=== PATIENT | male | born 1990 | race Hispanic/Latino ===

== ENCOUNTER 2020-08-28 17:26 | Emergency (ER) | payer BC ==
[2020-08-28 17:30] VITALS: BP 125/81
[2020-08-28] MEDS ORDERED: LIDOCAINE (1%) 10 MG/1 ML VIAL 20 ML MDV INFILTRATI ONE (17:35)
[2020-08-28] MEDS ORDERED: DIPHtheria,PERTUSSIS(ACELL),TETANUS VACCINE/PF 0.5 ML VIAL IM ONE (17:35)
--- NOTE | 2020-08-28 17:45 | Emergency Department Report ---
ED General Adult HPI - General Chief complaint: Wound/Laceration Stated complaint: LEG LACERATION Time Seen by Provider: 08/28/20 17:31 Source: patient Mode of arrival: Ambulatory Limitations: No Limitations - History of Present Illness Initial comments: 30-year-old male presents with complaints of right lower leg laceration today. Patient states he cut his leg on sharon wire during work. The laceration occurred through his pants. He states he is unsure of his last tetanus vaccination. He denies any possibility of foreign bodies, numbnes s/tingling/weakness in his leg, or difficulty moving his legs/walking. -: Sudden Quality: dull Worsens with: none Treatments Prior to Arrival: none - Related Data Previous Rx's Medication Instructions Recorded Last Taken Type Ibuprofen [Motrin 800 MG tab] 800 mg PO Q8HR PRN #20 tablet 08/28/20 Unknown Rx Mupirocin [Bactroban 2% OINT] 1 applic TP TID 7 Days #1 tube 08/28/20 Unknown Rx Sulfamethoxazole/Trimethoprim 1 each PO BID 7 Days #14 tablet 08/28/20 Unknown Rx [Bactrim DS TAB] Allergies Allergy/AdvReac Type Severity Reaction Status Date / Time Penicillins Allergy Unknown Verified 08/28/20 17:27 ED Review of Systems ROS: Stated complaint: LEG LACERATION Other details as noted in HPI Constitutional: denies: chills, fever Skin: as per HPI. denies: change in color Neurological: denies: numbness, paresthesias Hematological/Lymphatic: denies: easy bleeding ED Past Medical Hx - Past Medical History Previous Medical History?: No - Surgical History Past Surgical History?: No - Social History Smoking Status: Never Smoker Substance Use Type: None - Medications Home Medications: Home Medications Medication Instructions Recorded Confirmed Last Taken Type Ibuprofen [Motrin 800 MG tab] 800 mg PO Q8HR PRN #20 tablet 08/28/20 Unknown Rx Mupirocin [Bactroban 2% OINT] 1 applic TP TID 7 Days #1 tube 08/28/20 Unknown Rx Sulfamethoxazole/Trimethoprim 1 each PO BID 7 Days #14 tablet 08/28/20 Unknown Rx [Bactrim DS TAB] ED Physical Exam - General Limitations: No Limitations General appearance: alert, in no apparent distress - Head Head exam: Present: atraumatic, normocephalic - Eye Eye exam: Present: normal appearance. Absent: scleral icterus - Respiratory Respiratory exam: Absent: respiratory distress - Cardiovascular Cardiovascular Exam: Present: regular rate - Extremities Exam Extremities exam: Present: full ROM - Neurological Exam Neurological exam: Present: alert, oriented X3, normal gait - Psychiatric Psychiatric exam: Present: normal affect, normal mood - Skin Skin exam: Present: warm, dry, normal color. Absent: intact (3 cm laceration noted to right lateral upper leg without obvious foreign body, redness, or drainage noted; there is mild active bleeding), rash ED Course Vital Signs 08/28/20 17:27 Temperature 98 F Pulse Rate 93 H Respiratory 20 Rate Blood Pressure 125/81 O2 Sat by Pulse 96 Oximetry - Laceration /Wound Repair Right Lower Leg Wound Length (cm): 3 Wound's Depth, Shape: linear Wound Explored: no foreign body removed Irrigated w/ Saline (ccs): 80 Betadine Prep?: Yes Anesthesia: 1% Lidocaine Volume Anesthetic (ccs): 6 Wound Repaired With: sutures Suture Size/Type: 4:0, proline Number of Sutures: 7 (Continuous) Layer Closure?: No Sterile Dressing Applied?: Yes Progress: Minimal bleeding occurred. Patient tolerated procedure well without any immedia te complications. ED Medical Decision Making - Medical Decision Making 30-year-old male presents with complaints of right lower leg lac eration today. Patient states he cut his leg on sharon wire during work. The laceration occurred through his pants. He states he is unsure of his last tetanus vaccination. He denies any possibility of foreign bodies, numbness/tingling/weakness in his leg, or difficulty moving his legs/walking. Laceration repair without any immediate complications. Patient placed on mupirocin and Bactrim for infection prevention; patient has allergy to penicillins. His vitals are normal, he is well-appearing, he is stable for discharge home. Discussed wound care and strict return precautions in detail with patient who verbalized understanding. Patient to return to the ED in 10 days for suture removal. Critical care attestation.: If time is entered above; I have spent that time in minutes in the direct care of this critically ill patient, excluding procedure time. ED Disposition Clinical Impression: Laceration of right leg excluding thigh Qualifiers: Encounter type: initial encounter Qualified Code(s): S81.811A - Laceration without foreign body, right lower leg, initial encounter Disposition: DC-01 TO HOME OR SELFCARE Is pt being admited?: No Condition: Stable Instructions: Laceration Care, Adult Additional Instructions: Return to the emergency department in 10 days for suture removal Prescriptions: Sulfamethoxazole/Trimethoprim [Bactrim DS TAB] 1 each PO BID 7 Days #14 tablet Mupirocin [Bactroban 2% OINT] 1 applic TP TID 7 Days #1 tube Ibuprofen [Motrin 800 MG tab] 800 mg PO Q8HR PRN #20 tablet PRN Reason: pain
== END 2020-08-28 18:45 | disposition home or self-care (01) ==
LOC: ED 17:26
DX: S81.811A Laceration without foreign body, right lower leg, initial encounter (principal); Z79.1 Long term (current) use of non-steroidal anti-inflammatories (NSAID); Z79.899 Other long term (current) drug therapy; Z88.0 Allergy status to penicillin; W26.9XXA Contact with unspecified sharp object(s), initial encounter; Y93.89 Activity, other specified; Y92.89 Other specified places as the place of occurrence of the external cause; Y99.8 Other external cause status
CPT/HCPCS: 90471; 90715; 99282

== ENCOUNTER 2020-12-02 01:43 | Emergency (ER) | payer BC ==
[2020-12-02 01:54] VITALS: BP 151/105
--- NOTE | 2020-12-02 02:57 | XRay Report ---
LEFT ANKLE RADIOGRAPH, 3 VIEWS; LEFT FOOT RADIOGRAPH, 3 VIEWS INDICATION / CLINICAL INFORMATION: INJURY COMPARISON: None available. FINDINGS: ANKLE: No acute displaced fracture or dislocation. No significant arthritis. Mild soft tissue swellin g about the ankle. FOOT: No acute displaced fracture or dislocation. No significant arthritis. No significant soft tissu e abnormality. Signer Name: Bianka Mao MD Signed: 12/02/2020 2:53 AM Workstation Name: [id number]
[2020-12-02] MEDS ORDERED: IBUPROFEN 600 MG TAB PO ONE (03:20)
--- NOTE | 2020-12-02 03:23 | Emergency Department Report ---
ED Lower Extremity HPI - General Chief Complaint: Extremity Injury, Lower Stated Complaint: LEFT ANKLE Time Seen by Provider: 12/02/20 02:12 Source: patient Mode of arrival: Ambulatory Limitations: Physical Limitation - History of Present Illness Initial Comments: 30-year-old male presents to the emergency room for left ankle injury. 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 Patient states his left ankle inversion. Patient reports swelling and pain. Patient states he did not take his boot off as he was concerned that his foot was going to swell too much. Patient reports is painful to ambulate. MD Complaint: ankle injury -: During the night Injury: Ankle: Left, Foot: Left Type of Injury: inversion Place: work Severity scale (0 -10): 9 - Related Data Previous Rx's Medication Instructions Recorded Last Taken Type Mupirocin [Bactroban 2% OINT] 1 applic TP TID 7 Days #1 tube 08/28/20 Unknown Rx Sulfamethoxazole/Trimethoprim 1 each PO BID 7 Days #14 tablet 08/28/20 Unknown Rx [Bactrim DS TAB] Ibuprofen [Motrin 800 MG tab] 800 mg PO Q8HR PRN #20 tablet 12/02/20 Unknown Rx Allergies Allergy/AdvReac Type Severity Reaction Status Date / Time Penicillins Allergy Unknown Verified 08/28/20 17:27 ED Review of Systems ROS: Stated complaint: LEFT ANKLE Other details as noted in HPI ED Past Medical Hx - Past Medical History Previous Medical History?: No - Surgical History Past Surgical History?: No - Social History Smoking Status: Never Smoker Substance Use Type: None - Medications Home Medications: Home Medications Medication Instructions Recorded Confirmed Last Taken Type Mupirocin [Bactroban 2% OINT] 1 applic TP TID 7 Days #1 tube 08/28/20 Unknown Rx Sulfamethoxazole/Trimethoprim 1 each PO BID 7 Days #14 tablet 08/28/20 Unknown Rx [Bactrim DS TAB] Ibuprofen [Motrin 800 MG tab] 800 mg PO Q8HR PRN #20 tablet 12/02/20 Unknown Rx ED Physical Exam - General Limitations: Physical Limitation General appearance: alert, in no apparent distress - Head Head exam: Present: atraumatic, normocephalic - Eye Eye exam: Present: normal appearance - ENT ENT exam: Present: mucous membranes moist, normal external ear exam - Neck Neck exam: Present: normal inspection, full ROM - Respiratory Respiratory exam: Absent: respiratory distress, accessory muscle use - Cardiovascular Cardiovascular Exam: Present: regular rate - Expanded Lower Extremity Exam Left Hip exam: Present: normal inspection Upper Leg exam: Present: normal inspection Knee exam: Present: normal inspection Lower Leg exam: Present: normal inspection Ankle exam: Present: full ROM, tenderness, swelling Foot/Toe exam: Present: normal inspection, full ROM. Absent: tenderness, swelling Neuro vascular tendon exam: Present: no vascular compromise - Back Exam Back exam: Present: normal inspection - Neurological Exam Neurological exam: Present: alert, oriented X3 - Psychiatric Psychiatric exam: Present: normal affect, normal mood - Skin Skin exam: Present: warm, dry, intact, normal color. Absent: rash ED Course Vital Signs 12/02/20 01:50 Temperature 98.3 F Pulse Rate 85 Respiratory 18 Rate Blood Pressure 151/105 O2 Sat by Pulse 98 Oximetry ED Lower Extremity MDM - Radiology Data Radiology results: report reviewed [facility] [address] [place] [address] XRay Report Signed Patient: GUERLINE STRATTON MR#: [id number] : 1990 Acct:[id number] Age/Sex: 30 / M ADM Date: 12/02/20 Loc: ED Attending Dr: Ordering Physician: REKHA BOSE Date of Service: 12/02/20 Procedure(s): XR ankle 3+V LT Accession Number(s): [id number] cc: REKHA BOSE Fluoro Time In Minutes: LEFT ANKLE RADIOGRAPH, 3 VIEWS; LEFT FOOT RADIOGRAPH, 3 VIEWS INDICATION / CLINICAL INFORMATION: INJURY COMPARISON: None available. FINDINGS: ANKLE: No acute displaced fracture or dislocation. No significant arthritis. Mild soft tissue swelling about the ankle. FOOT: No acute displaced fracture or dislocation. No significant arthritis. No significant soft tissue abnormality. Signer Name: Bianka Mao MD Signed: 12/02/2020 2:53 AM Workstation Name: [id number] Transcribed By: [facility] Dictated By: Bianka Mao MD Electronically Authenticated By: Bianka Mao MD Signed Date/Time: 12/02/20 025 DD/ 0250 TD/TT: Print Cancel - Medical Decision Making 30-year-old male presents to the emergency room for left ankle injury. 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 Patient states his left ankle inversion. Patient reports swelling and pain. Patient states he did not take his boot off as he was concerned that his foot was going to swell too much. Patient reports is painful to ambulate. X-ray of left ankle shows no fractures or significant swelling no dislocation. X-ray of left foot shows no fracture no dislocation and no significant swelling. Patient will be treated and managed as a ankle sprain with ankle stirrup crutches ibuprofen and follow-up with the orthopedic for further concerns. Critical care attestation.: If time is entered above; I have spent that time in minutes in the direct care of this critically ill patient, excluding procedure time. ED Disposition Clinical Impression: Left ankle sprain Disposition: - TO HOME OR SELFCARE Is pt being admited?: No Does the pt Need Aspirin: No Condition: Stable Instructions: How to Use a Stirrup Ankle Brace, [id number], Ankle Sprain, [id number] Additional Instructions: X-ray is negative for any fractures or dislocations. You are being treated for a ankle sprain. Ankle stirrup crutches and ibuprofen. Referral to orthopedic if any further concerns. Prescriptions: Ibuprofen [Motrin 800 MG tab] 800 mg PO Q8HR PRN #20 tablet PRN Reason: pain Referrals: PRIMARY CAREMD [Primary Care Provider] - 3-5 Days ARMANDO SANTOYO MD [Staff Physician] - 3-5 Days Forms: Work/School Release Form(ED) Time of Disposition: 03:27
== END 2020-12-02 04:19 | disposition home or self-care (01) ==
LOC: ED 01:43
DX: S93.402A Sprain of unspecified ligament of left ankle, initial encounter (principal); Z79.899 Other long term (current) drug therapy; Z88.0 Allergy status to penicillin; Y93.89 Activity, other specified; Y92.89 Other specified places as the place of occurrence of the external cause; Y99.8 Other external cause status
CPT/HCPCS: 99283